=== PATIENT | female | born 1990 | race Caucasian/White ===

== ENCOUNTER → 2021-02-16 15:29 | Outpatient (CLI) | payer OTHER, SELFPAY ==
--- NOTE | 2021-02-15 14:20 | BRBX_PTH ---
PATIENT: SIMON SHEPHERD LOC: [facility] U#:[id number] AGE/SX: 35/F ROOM: RE02/16/[address]: Dr. Elif Dias MD : 1990 BED: DIS: SPEC #: [id number] RECD: 02/16/21 15:00 STATUS: DARLEEN SELINA #: [id number] ANETTE: 02/15/21 14:[address]: Elif Dias DEPT: SURGICAL PATHOLOGY RECD BY: Lachelle Paulson ENTERED: 02/17/21 09:14 SP TYPE: BREAST BX OTHR DR: Vaishali Nuñez PA-C Tissues: Right breast, NOS Procedures: Surgery Specimen Level IV HEADER OPERATION: Right breast biopsy PRE-OP DIAGNOSIS: Right breast mass, ? fibroadenoma vs fibrocystic TISSUE SUBMITTED: Right breast tissue MICROSCOPIC DIAGNOSIS Right breast mass, core biopsy: Fibroadenoma. AM:tiffanie 02/20/2021 COMMENT Case has been reviewed in consultation with Dr. St who concurs with the above diagnosis. IDC:[id number] MICROSCOPIC DESCRIPTION Slides are reviewed. GROSS DESCRIPTION Received in fixative is one container labeled with the patient's name and designated right breast. The specimen consists of multiple elongated fragments of valadez-yellow fibroadipose tissue that in aggregate measure 2 x 0.2 x 0.1 cm. The entire specimen is submitted in one cassette. / CHAD:tiffanie 02/17/21 TC:5 CPT: 46126
== END ==
PROVIDERS: PCP Family Medicine; Visit Provider Surgery
DX: R92.8 Other abnormal and inconclusive findings on diagnostic imaging of breast (principal)
CPT/HCPCS: 88305

== ENCOUNTER → 2022-06-11 | Outpatient (CLI) | payer OTHER, SELFPAY ==
--- NOTE | 2022-06-11 18:12 | RAD_ITS ---
STUDY: X-RAY - CERVICAL SPINE REASON FOR EXAM: Female, 32 years old. Pain. TECHNIQUE: 3 view(s) of the cervical spine were obtained. COMPARISON: None FINDINGS: Normal anterior atlantoaxial articulation. Normal odontoid process. Normal cervical lordosis. Mild diffuse uncovertebral and facet sclerosis. Minimal intervertebral disc space narrowing at C5-6 and C6-7. No significant osteophyte formation. Normal soft tissues. RAD/Cerv Spine 2 or 3 Views IMPRESSION: Mild lower cervical spondylosis. No acute abnormality, evidence of erosive changes/fusion. Electronically Signed: Grady Calloway, at 14:04 EST ,
== END | disposition home or self-care (01) ==
LOC: RAD 18:01
PROVIDERS: PCP Family Medicine; Visit Provider Anesthesiology Pain Medicine
DX: M50.30 Other cervical disc degeneration, unspecified cervical region (principal)
CPT/HCPCS: 72040

== ENCOUNTER → 2022-08-13 | Outpatient (CLI) | payer OTHER, SELFPAY ==
--- NOTE | 2022-08-13 16:34 | MRI_ITS ---
EXAM: MR CERVICAL SPINE WITHOUT INTRAVENOUS CONTRAST CLINICAL INDICATION: None provided. neck pain, headaches TECHNIQUE: Multiplanar and multisequence MR images of the cervical spine without intravenous contrast were performed. COMPARISON: No relevant prior studies available. FINDINGS: VERTEBRAE: Straightening of the usual lordotic curvature. Normal craniocervical junction and cervicothoracic junction. No spondylolisthesis. SPINAL CORD: Unremarkable in signal and morphology. SOFT TISSUES: Unremarkable. No prevertebral soft tissue swelling. LYMPH NODES: Unremarkable. There is no cervical adenopathy. DISCS/SPINAL CANAL/NEURAL FORAMINA: C2-C3: Unremarkable. Normal disc height and morphology. Normal spinal canal. Normal neuroforamina. C3-C4: Unremarkable. Normal disc height and morphology. Normal spinal canal. Normal neuroforamina. C4-C5: Unremarkable. Normal disc height and morphology. Normal spinal canal. Normal neuroforamina. C5-C6: Milder left osteophyte-disc complex at C5-6 narrowing the central-left thecal sac and markedly narrowing the left proximal-mid neural foramen. Decreased height and T2 signal intensity in the C5-6 and C6-7 this, mild. Normal spinal canal. C6-C7: Prominent left posterior lateral osteophyte-disc complex at C6-7 effacing the left ventral thecal sac and marked stenosis of adjacent proximal left neural foramen.The AP diameter of the left thecal sac is roughly 5 mm compared to 7 mm on the right. C7-T1: Unremarkable. Normal disc height and morphology. Normal spinal canal. Normal neuroforamina. OTHER FINDINGS: No midline high-grade spinal stenosis. MRI/Spine Cervical (Routine) IMPRESSION: Osteophyte-disc complexes on the left at C5-6 and C6-7 with associated narrowing of the left thecal sac and neural foramen. High-grade neural foraminal stenosis at these levels. No kira cord impingement, minimal flattening of the left ventral cord at these levels. Electronically Signed: Dayana García MD at 9:09 EDT ,
== END | disposition home or self-care (01) ==
PROVIDERS: PCP Family Medicine; Referring Provider Orthopaedic Surgery; Visit Provider Orthopaedic Surgery
DX: M50.30 Other cervical disc degeneration, unspecified cervical region (principal)
CPT/HCPCS: 72141